=== PATIENT | male | born 1945 | race Caucasian/White ===

== ENCOUNTER → 2018-01-23 14:46 | Outpatient (CLI) | payer MEDICARE, OTHER, SELFPAY ==
--- NOTE | 2018-01-23 14:48 | DI.US.S_ITS ---
PROCEDURE: US CHEST COMPARISON: None. INDICATIONS: Rib R lower back FINDINGS: No abnormally seen by ultrasound in the recurrent clavicles concern right lower rib region. IMPRESSION: Normal examination. Depending on the clinical status followup by contrast-enhanced CT or MR scanning may become necessary. Dictated by: Nathan Barrios M.D. on 01/23/2018 at 16:53 Approved by: Nathan Barrios M.D. on 01/23/2018 at 16:53
== END ==
PROVIDERS: Visit Provider Internal Medicine
DX: M89.9 Disorder of bone, unspecified (principal)
CPT/HCPCS: 76604